=== PATIENT | male | born 1960 | race Caucasian/White ===

== ENCOUNTER 2023-04-08 09:59 | Outpatient (CLI) | payer MEDICAID, SELFPAY ==
--- NOTE | 2023-04-08 10:15 | MR_ITS ---
[address] [address] Phone:?[phone] Fax:?[phone] Referring Physician Information: Jaden Carter M.D. [id number] [facility] [address] Phone:?[phone] Fax:?[phone] Patient:Manolo Watkins D.O.B:?1960 Sex:?Female Phone:?[phone] [facility] MRN:?[id number] Exam Date:?04/08/2023 EXAM: MRI of the LEFT KNEE, without contrast CLINICAL HISTORY: Left knee pain. Evaluate for medial meniscal tear. COMPARISONS: Plain radiographs 01/01/2023. TECHNICAL: MR sequences of the left knee: sagittals: PD, PDFS coronals: PD, STIR axials: PD, T2 FS CONTRAST: None SEDATION: None FINDINGS: Bones: No fracture, bone marrow contusion, or other suspicious bone marrow signal abnormality. Patellofemoral joint: Cartilage: Intact. Retinacula: The medial and lateral retinacula are intact. Fat pads: The infrapatellar, quadriceps, and prefemoral fat pads are unremarkable. Knee joint: Effusion: Moderate left knee joint effusion. Popliteal cyst: None. Intra-articular bodies: None. Posteromedial corner: The semimembranosus and pes anserine tendons are intact. Medial compartment: Medial meniscus: There is a 3.0 cm in length complex flap tear from the body through posterior horn of the medial meniscus with a flap of torn meniscal tissue from the body/posterior horn junction located near the medial gutter and with a flap of torn meniscal tissue at the posterior horn/posterior root junction flipped superiorly. Cartilage: Intact. Lateral compartment: Lateral meniscus: Intact. Cartilage: Intact. Ligaments: Anterior cruciate ligament: Intact. Posterior cruciate ligament: Intact. Medial collateral ligament: Intact. Posterior oblique ligament: Intact. Fibular collateral ligament: Intact. Posterolateral corner: The distal biceps femoris tendon, iliotibial band, popliteus tendon, popliteus muscle, popliteofibular ligament, and arcuate ligament are intact. Extensor mechanism: Patellar tendon: Intact. Quadriceps tendon: Intact. IMPRESSION: 1. 3.0 cm in length complex flap tear from the body through posterior horn of the medial meniscus with a flap of torn meniscal tissue from the body/posterior horn junction located near the medial gutter and with a flap of torn meniscal tissue at the posterior horn/posterior root junction flipped superiorly. 2. Moderate left knee joint effusion. 3. No lateral meniscal tear, ligamentous injury, or chondral pathology of the left knee. RCB Electronically signed on 04/08/2023 12:39:00 PM by Janes Salazar M.D.
== END 2023-04-08 10:00 | disposition home or self-care (01) ==
LOC: MRI 10:01
PROVIDERS: PCP Family Medicine; Visit Provider Orthopaedic Surgery Sports Medicine
DX: M25.562 Pain in left knee (principal); S83.242A Other tear of medial meniscus, current injury, left knee, initial encounter; M25.462 Effusion, left knee
CPT/HCPCS: 73721

== ENCOUNTER 2023-06-10 06:15 | Day surgery (SDC) | payer MEDICARE, MEDICAID, SELFPAY ==
[2023-06-10] VITALS (10 sets, daily range): BP systolic 104–143; BP diastolic 64–91; PULSE 50–64; RESP 16–18; TEMP 36.4–36.6; O2SAT 96–100; BMI 29.9
[2023-06-10] MEDS: SODIUM CHLORIDE 0.9 % (FLUSH) 10 ML SYRINGE IVF (06:35)
[2023-06-10] MEDS: LACTATED RINGERS 1000 ML 1,000 ML 100 ML IV (06:35)
--- NOTE | 2023-06-10 07:10 | W.PM.H&PU ---
History & Physical Update History & Physical Update H&P Reviewed and patient assessed: No changes noted
[2023-06-10] MEDS: CEFAZOLIN 2 GM in 0.9 % SODIUM CHLORIDE Mini-bag 100 ML IVPB (09:25)
--- NOTE | 2023-06-10 09:53 | P.ORPRC_ITS ---
Procedure Note Date of procedure: 06/10/23 Procedure: PREOPERATIVE DIAGNOSIS: 1. Left knee medial meniscus tear POSTOPERATIVE DIAGNOSIS: 1. Left knee medial meniscus tear PROCEDURE: 1. Left knee arthroscopic partial medial meniscectomy SURGEON: Jaden Carter M.D. ETHYLBENZENE CONVERTER HELPER: Ambrose RASHID. Of note, an wet process assistant head miller was critical for this case to aid in patient positioning, knee manipulation, instrument exchange, and closure. ANESTHESIA: Spinal EBL: 2ml TOURNIQUET: 20 minutes at 300 torr COMPLICATIONS: None evident INDICATIONS: The patient is a pleasant 63-year-old male who has experienced left knee pain particularly with any twisting or turning. Physical exam was concerning for medial meniscus tear, this was confirmed on MRI. Additionally, attempted nonoperative management has been tried, and failed. Thus, surgery was recommended. FINDINGS: Medial meniscus tear posterior horn approaching the posterior root. Flap fragment displaced into the intercondylar notch. Also secondary tear along the posterior horn approaching the midbody on the undersurface. Lateral meniscus was intact. Articular cartilage showed grade 2 chondromalacia of patellofemoral compartment and minimal portion weight-bearing medial femoral condyle. No loose bodies evident. ACL and PCL intact and robust. DESCRIPTION OF PROCEDURE: After a thorough discussion of risks, benefits, and alternatives, the patient was brought to the operating room and placed upon the operating table. Induction of anesthesia was undertaken as previously noted. 2g iv Ancef was administered within 1 hr of incision preoperatively. Appropriate time-out was performed identifying proper patient, site, and procedure. The left lower extremity was prepped and draped in the appropriate sterile fashion using ChloraPrep. The limb was exsanguinated and tourniquet i nflated. Anterolateral and anteromedial portals were established with an 11 blade, and a diagnostic arthroscopy was performed. This identified the findings as noted above. Following the diagnostic arthroscopy, a partial medial menisectomy was performed with the combination of basket forceps and a motorized shaver. Following this, the meniscus was re-probed and found to be stable. Approximately 15 % of the overall meniscus required resection. At this stage, the shaver was reinserted into the suprapatellar pouch and all remaining meniscal debris was evacuated. Instruments were removed, excess fluid was drained, and closure performed with 4-0 Monocryl with Steri-Strips. Dressings were applied, the tourniquet deflated, and the patient was awoken from anesthesia and transferred to the PACU in stable condition. PLAN: 1. Weightbear as tolerated operative extremity. Crutch / walker ambulation assistance PRN. Straight leg raise to be initiated starting tomorrow by the patient. 2. Ice, acetominophen and/or ibuprofen, and oxycodone for pain as needed. 3. Knee range of motion and quad sets/straight leg raise regularly 4. Follow up with PA visit in 7-10 days. for a wound check. Initiate physical therapy at that time
[2023-06-10] MEDS: ROPIVACAINE 0.5% 30 ML 150 MG INJECTION (09:55)
--- NOTE | 2023-06-10 10:12 | W.ANESCHARGE ---
Anesthesia Charges Start Date/Time Anesthesia Start Date: 06/10/23 Anesthesia Start Time: 09:19 Stop Date/Time Anesthesia Stop Date: 06/10/23 Anesthesia Stop Time: 10:08
== END 2023-06-10 11:28 | disposition home or self-care (01) ==
PROVIDERS: PCP Family Medicine; Visit Provider Orthopaedic Surgery Sports Medicine
PROC: (CPT 29870; principal; 2023-06-10 08:45)
DX: M23.222 Derangement of posterior horn of medial meniscus due to old tear or injury, left knee (principal)
CPT/HCPCS: 29881; 01400; J0690; J1100; J2405; J2704; J2795; J3010; J7120